=== PATIENT | female | born 1995 | race Caucasian/White ===

== ENCOUNTER 2020-06-16 11:47 | Emergency (ER) | payer OTHER, SELFPAY ==
[~2020-06-16] VITALS: Ht 171.4 cm; Wt 63.3 kg
[2020-06-16 13:55] LABS: HEMATOCRIT 42.2 % (36.0-47.0); HEMOGLOBIN 14.4 g/dl (12.0-15.5); MEAN CORPUSCULAR HEMOGLOBIN 29.6 pg (27.0-33.0); MEAN CORPUSCULAR HGB CONC 34.1 g/dl (32.0-36.5); MEAN CORPUSCULAR VOLUME 86.7 fl (80.0-96.0); PLATELET COUNT, AUTOMATED 298 10^3/uL (150-450); RED BLOOD COUNT 4.87 10^6/uL (4.00-5.40); WHITE BLOOD COUNT 7.5 10^3/uL (4.0-10.0)
--- NOTE | 2020-06-16 15:30 | REP ---
INDICATION: vaginal bleeding, 5 weeks. COMPARISON: None. TECHNIQUE: Real-time sonographic evaluation of gravid uterus performed. FINDINGS: Intrauterine gestational sac contains yolk sac and a pole. There appears to be a viable intrauterine fetus with crown-rump length of 3 mm corresponding to an estimated gestational age of 5 weeks 6 days, EDC 02/10/2021. heart rate 73 beats per minute. There is a subchorionic hemorrhage measuring 2.2 x 1.6 x 2.2 cm. In the left ovary a cystic area likely represents a corpus luteum 1.7 cm in diameter. IMPRESSION: Intrauterine gestation with estimated gestational age 5 weeks 6 days and heart rate 73 beats per minute. Subchorionic hemorrhage is visualized measuring 2.2 x 1.6 x 2.2 cm. <Electronically signed by Isai Barragan > 06/16/20 152
[2020-06-16] MEDS ORDERED: RHOGAM 300 MCG (1500 IU) INJ (J2790) IM ONE (15:45)
[2020-06-16 16:45] VITALS: BP 111/66
== END 2020-06-16 17:00 | disposition home or self-care (01) ==
LOC: M ED 11:47
DX: O20.0 Threatened abortion (principal); Z3A.01 Less than 8 weeks gestation of pregnancy
CPT/HCPCS: 36415; 76801; 81001; 84702; 85027; 86850; 86870; 86901; 96372; 99283; J2790

== ENCOUNTER → 2020-06-23 | Outpatient (CLI) | payer OTHER ==
--- NOTE | 2020-06-23 15:50 | REP ---
INDICATION: REPEAT FOR VIABILITY COMPARISON: 06/16/2020 TECHNIQUE: Transabdominal and transvaginal 1st trimester obstetrical ultrasound with color Doppler evaluation. FINDINGS: Single live early intrauterine is appreciated. Gestational sac with yolk sac and pole identified. [place]-rump length of 3 mm corresponds to 6 weeks 0 days gestational age with estimated date of delivery 02/16/2021. heart rate equals 116 beats per minute. Subchorionic hemorrhage is again identified adjacent to the gestational sac measuring 20 x 22 x 12 mm Left corpus luteal cyst noted. IMPRESSION: Single live early intrauterine at 6 weeks 0 days gestational age. Subchorionic hemorrhage again noted. Complete anatomical assessment should be performed and 19-20 weeks. <Electronically signed by Abram Dean > 06/23/20 [id number]
== END ==
LOC: M RAD 09:06
PROVIDERS: ATTEND Obstetrics & Gynecology
DX: Z36.9 Encounter for antenatal screening, unspecified (principal); Z3A.01 Less than 8 weeks gestation of pregnancy

== ENCOUNTER 2021-02-25 06:40 | Inpatient (IN) | payer OTHER ==
[2021-02-25] VITALS (20 sets, daily range): BP systolic 94–130; BP diastolic 50–87
[~2021-02-25] VITALS: Ht 172.7 cm; Wt 76.3 kg
[2021-02-25] MEDS ORDERED: PRENTAB9 PO (07:43)
[2021-02-25] MEDS ORDERED: VITA100T59 PO (07:43)
[2021-02-25] MEDS ORDERED: VITATAB74 PO (07:43)
[2021-02-25] MEDS ORDERED: BIOT1CAP2 PO (07:43)
[2021-02-25] MEDS ORDERED: LACTATED RINGER'S 1000 ML IV STA (07:47)
[2021-02-25] MEDS ORDERED: OXYTOCIN INJ 10 UNITS/ML VIAL (J2590) IM PRN (07:50)
[2021-02-25] MEDS ORDERED: LR 1,000 ML IV SCH (07:50)
[2021-02-25] MEDS ORDERED: TRANEXAMIC ACID INJection 1,000 MG in NS 100 ML IV PRN (07:50)
[2021-02-25] MEDS ORDERED: OXYTOCIN DRIP 30 UNITS in IV 1 EA IV PRN ×6 (07:50)
[2021-02-25] MEDS ORDERED: OXYTOCIN INJ 10 UNITS/ML VIAL (J2590) IV PRN (07:50)
[2021-02-25] MEDS ORDERED: CARBOPROST TROMETHAMINE 250 MCG/ML AMP IM PRN (07:50)
[2021-02-25] MEDS ORDERED: OXYTOCIN DRIP 30 UNITS in IV 1 EA IV SCH (07:50)
[2021-02-25] MEDS ORDERED: LIDOCAINE 1% MDV 20ML VIAL INFIL PRN (07:50)
[2021-02-25] MEDS ORDERED: miSOPROStol 50MCG 1/2 TABLET PO ONE ×2 (07:50→15:05)
[2021-02-25] MEDS ORDERED: METHYLERGONOVINE MALEATE 0.2 MG/ML VIAL (J2210) IM PRN (07:50)
--- NOTE | 2021-02-25 08:40 | HPEPDOC ---
Obstetrical History & Physical General Date of Admission Feb 25, 2021 at 06:40 History of Present Illness 26 yo @ 41W2D by 6wk us who is admitted for IOL at late term.. She denies any vaginal bleeding, abnormal vaginal discharge, leakage of fluids, urinary symptoms, or regular contractions. She denies any new headaches, visual abnormalities, chest pain, worsening dyspnea, facial swelling, or upper extremity swelling. At this time, she continues to report regular movement. Chief Complaint: Induction of labor Information Provided By: Patient Care Care: Good Care Dating Final EDC: Feb 16, 2021 Final EDC by: 1st trimester (US) 1st Trimester Date: Jun 23, 2020 Weeks + Days: 6 Estimated Date of Confinement: Feb 16, 2021 EGA at Admission: 41 (41+2) Antepartum Course Diagnos(e)s 1. Rh neg-had rhogam at 28 weeks 2. 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 Past Medical History Surgical History: [place] teeth Family History Significant Family History: No pertinent family hx Social History Marital Status: Family situation: Spouse/partner home * Smoker: non-smoker Alcohol: Denies Drugs: denies Abuse Violence Screening Have you been hit/kicked/slapp: No Have you been sexually assault: No Imunizations Tdap status: current Allergies Coded Allergies: No Known Allergies (Verified Allergy, Unknown, 06/16/20) Medications Scheduled Ascorbic Acid (Vitamin C) 100 Mg Tablet, 1 TAB PO DAILY Biotin (Biotin) 1 Mg Capsule, 1 CAP PO DAILY No.137/Iron/Folic Acd ( Vitamin Tablet) 1 Each Tablet, 1 TAB PO DAILY Miscellaneous Medications Mv-Mn/Iron/Folic Acid/Herb 190 (Vitamin D3 Complete Caplet) 1 Each Tablet, 1 TAB PO Physical Examination Physical Examination GENERAL: Alert and oriented times three. BREAST: . ABDOMEN: Gravid and non-tender to touch. FETUS: Is vertex (VTX) by sterile vaginal examination (SVE) HEART RATE: Regular rate and rhythm. LUNGS: normal work of breathing EXTREMITIES: No edema. SVE: /-3, double lumen coleman placed for cervical ripening Laboratory Data 24H LABS Laboratory Tests 2 02/25/21 06:42: Serology Scanned Report Hepatitis B Testing Urine Culture: No Growth Pertinent Laboratoy Data Blood Type: B- RBC Antibody Screen: Positive (s/p rhogam in1st trimester) HIV: Negative Hepatitis B: Negative Hepatitis C: Unknown Rapid Plasma Reagin: Nonreactive Rubella: Immune Varicella: Immune Chlamydia/Gonorrhea: Negative Group B Streptococcus: Negative Quad Screen Test: Declined Cystic Fibrosis: Declined Glucose Tolerance Test: 102 Anatomy Ultrasound Placenta Location: Posterior Normal Anatomy: Yes Vaginal Examination Dilation: 2cm Effacement: 50% Station: -3 Cervical Consistency: Medium Cervical Position: Posterior Presentation: Cephalic presentation Assessment Heart Rate (FHR): 140 Variability: Moderate Accelerations: Positive Decelerations: None Tocometer Contractions: Yes Frequency: irregular Assessment/Plan Assessment Assessment: 26 yo @ 41W2D by 6wk us who is admitted for IOL at late term. hemodynamically stable. Category I FHRT. GBS Neg APC: 1. Rh neg-had rhogam at 28 weeks 2. 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 - Consent signed and given to RN - CBC with type and screen. - Anesthesia consult in- she does not want epidural for now - Risks of augmentation with Cytotec, Coleman-Bulb, and Pitocin discussed with patient. -C-S as appropriate. Labor and Delivery Counseling We will deliver your baby through the vagina with possible assistance of forceps or vacuum device if needed for maternal or indications. Forceps and vacuum are devices that can assist with vaginal delivery when normal pushing efforts cannot achieve delivery on their own or when delivery is needed in an emergency for baby's well-being. Medications may be required to induce or augment (help) your labor in order to achieve a vaginal delivery. An episiotomy may be required to help your baby to delivery vaginally. You may also require repair of any lacerations or tears of your vagina or vulva that are caused by delivery. In some cases, emergencies can occur that require an emergency section delivery so quickly that there may not be enough time to stop and complete co nsent forms for section. Understand that if this occurs, your providers will discuss the need for a section with you before they proceed with surgery. section is the delivery of your baby through an incision in your abdomen. In some situations, section may be safer to mom and baby than continuing labor and is only performed when clinically indicated. Risks of vaginal delivery include but are not limited to: Bleeding, infection, injury to the vagina, pelvic structures, injury to baby, damage to the uterus, reactions to anesthesia, uterine rupture, risk of hysterectomy for life threatening bleeding, or . Medications used to induce or augment labor may increase your risk for infection, uterine tachysystole, uterine rupture, heart rate abnormalities, need for emergency delivery or possible hysterectomy, and hemorrhage. Additional risks for use of forceps and vacuum include: increased risk of perineal and vaginal lacerations, risk of urinary or bowel incontinence, increased risk of injury to baby with bruising, scratches, hematomas on the head, or intracranial bleeding. TESFAYE MOORE MD Feb 25, 2021 08:16
[2021-02-25 09:07] LABS: HEMATOCRIT 37.5 % (36.0-47.0); HEMOGLOBIN 13.2 g/dl (12.0-15.5); MEAN CORPUSCULAR HEMOGLOBIN 30.9 pg (27.0-33.0); MEAN CORPUSCULAR HGB CONC 35.2 g/dl (32.0-36.5); MEAN CORPUSCULAR VOLUME 87.8 fl (80.0-96.0); PLATELET COUNT, AUTOMATED 276 10^3/uL (150-450); RED BLOOD COUNT 4.27 10^6/uL (4.00-5.40); WHITE BLOOD COUNT 17.1 10^3/uL (4.0-10.0)
--- NOTE | 2021-02-25 21:25 | IPNPDOC ---
Obstetrical Progress Note Date of Service Feb 25, 2021 Subjective To room for assessment. patient is comfortable in bed. FHT: 120, Mod jade,+accels, -decel--cat I tracing TOCO: Irregular SVE: 5/75/-1, DLFB removed arounf 8pm. pit started at 9pm. A/P Latent labor. cat I tracing. will continue to go up on pitocin then reassess in 4 hrs for Arom Anticipate . Objective Vital Signs Date Time Temp Pulse Resp B/P (MAP) Pulse Ox O2 Delivery O2 Flow Rate FiO2 02/25/21 21:10 63 125/59 (81) 02/25/21 19:44 97.9 02/25/21 18:17 16 02/25/21 07:14 98 TESFAYE MOORE MD Feb 25, 2021 21:25
--- NOTE | 2021-02-25 22:44 | IPNPDOC ---
Obstetrical Progress Note Date of Service Feb 25, 2021 Subjective To room for assessment. patient still not feeling contractions FHT: 120, MOD CLAY ACCELS, NO DECELS---CAT I tracing TOCO: IRREGULAR, PIT @ 6 SVE: 5/75/-1, AROM CLEAR A/P LATENT LABOR. CAT I TRACING. ANTICIPATE Objective Vital Signs Date Time Temp Pulse Resp B/P (MAP) Pulse Ox O2 Delivery O2 Flow Rate FiO2 02/25/21 22:09 98.0 59 14 107/58 (74) 02/25/21 07:14 98 TESFAYE MOORE MD Feb 25, 2021 22:44
[2021-02-26] VITALS (33 sets, daily range): BP systolic 100–250; BP diastolic 55–134
[2021-02-26] MEDS ORDERED: FENTANYL 2MCG/ML ROPIVACAINE 0.2% IN 0.9% NACL 100ML IVBAG As Ordered ONE (04:02)
[2021-02-26] MEDS ORDERED: LACTATED RINGER'S 1000 ML IV PRN (04:45)
[2021-02-26] MEDS ORDERED: ePHEDrine SULFATE 25 MG/5 ML(5MG/ML) SYRINGE IV PRN (04:45)
[2021-02-26] MEDS ORDERED: FENTANYL/ROPIVACAINE/NACL BAG 100 ML EPIDURAL SCH (04:45)
[2021-02-26] MEDS ORDERED: NALOXONE INJ 0.4MG/1ML VIAL (J2310 PER 1MG) IV PRN (04:45)
[2021-02-26] MEDS ORDERED: EPIDURAL/PCA KEYS XX PRN (04:45)
[2021-02-26] MEDS ORDERED: REFRIGERATOR IV KEYS XX PRN (04:45)
[2021-02-26] MEDS ORDERED: EPIDURAL COMMENT XX SCH (04:45)
[2021-02-26] MEDS ORDERED: diphenhydrAMINE 50MG/ML VIAL (J1200) IV PRN (04:45)
[2021-02-26] MEDS ORDERED: ONDANSETRON 4MG/2ML VIAL IV PRN (04:45)
--- NOTE | 2021-02-26 08:09 | IPNPDOC ---
Obstetrical Progress Note Date of Service Feb 26, 2021 Subjective Report received, assumed care at 0730. Patient currently C/C, just started to actively push. Comfortable with DUNCAN, but still feeling pressure to push. Objective Vital Signs Date Time Temp Pulse Resp B/P (MAP) Pulse Ox O2 Delivery O2 Flow Rate FiO2 02/26/21 06:54 73 123/77 (92) 02/26/21 05:37 98.2 02/25/21 22:09 14 02/25/21 07:14 98 Assessment Heart Rate (FHR): 120 Variability: Moderate Accelerations: Present Decelerations: Variable Heart Rate Tracing: Category II Tocometer Frequency: every 2-5 min. Assessment and Plan Additional Comments A/P 26yo at 41+3 wks. Was IOL for pending postdates. B Neg, RI/, GBS negative VSS FHR cat 2 with occ variables. Actively pushing with about 1cm caput at this time. +2 for skull Ruptured with clear fluid Pitocin currently on 14mu/min. Continually actively pushing, anticipate . Consult physician service as needed. ISAÍAS BERNARDO CNM Feb 26, 2021 08:09
[2021-02-26] MEDS: PRENATAL VITAMINS CHEWABLE TABLET PO SCH (09:00)
[2021-02-26 10:25] LABS: CORD GAS ABE V -3.7; CORD GAS HCO3 V 21.9 MEQ/L; CORD GAS O2 SAT V 62.2 %; CORD GAS PCO2 V 41.6 mmHg; CORD GAS PH V 7.339 UNITS; CORD GAS SBC V 20.5 MEQ/L; CORD GAS TCO2 V 23.2 MEQ/L
[2021-02-26] MEDS ORDERED: DOCUSATE SODIUM 100MG CAPSULE PO PRN (10:35)
[2021-02-26] MEDS ORDERED: ACETAMINOPHEN TAB 650MG DOSE (2X325MG) PO PRN (10:35)
[2021-02-26] MEDS ORDERED: IBUPROFEN 600MG TAB PO PRN (10:35)
[2021-02-26] MEDS ORDERED: IBUPROFEN 800 MG TAB PO PRN (10:35)
[2021-02-26] MEDS ORDERED: DIBUCAINE 1% OINTMENT 30GM TOP PRN (10:35)
[2021-02-26] MEDS ORDERED: METHYLERGONOVINE MALEATE 0.2 MG TAB PO PRN (10:35)
[2021-02-26] MEDS ORDERED: RHOGAM 300 MCG (1500 IU) INJ (J2790) IM SCH (10:35)
[2021-02-26] MEDS ORDERED: OXYTOCIN DRIP 30 UNITS in IV 1 EA IV SCH (10:35)
--- NOTE | 2021-02-26 11:15 | DNPDOC ---
[facility] Delivery Note Delivery Note Date of Delivery: 26 Feb 2021 @ 1005 hours Pre-Procedure Diagnosis: 1. 26 year old at 41+3 weeks gestation 2. Rh Negative 3. 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 Induction for pending Postdates Post-Procedure Diagnosis: 1. Normal spontaneous vaginal delivery, after 40 weeks gestation 2. Second degree laceration Procedure: Spontaneous vaginal delivery Delivery Provider: MAJ Kimberley Thompson CNM Anesthesia: Epidural Estimated Blood Loss: 150 ml Findings: Delivered viable infant Female weighing 3530gm (7#15oz), Score 8/9. Complications: None Delivery Summary: Patient is a 26 year old 2 now para 1 who was admitted to labor and delivery for IOL for late term gestation. She progressed to C/C/+3 on Pitocin titration induction. Noted variable decelerations with contractions throughout pushing. Baseline reassuring between. Offered episiotomy to relieve tissue band, however patient delivered OA on next contraction, head restituting to LOT. Right anterior shoulder, posterior shoulder, and corpus delivered easily with maternal pushing efforts. to maternal abdomen for drying, stimulation and assessment by nursing staff. Cord clamped x2 and cut by FOB after about 60sec for delayed clamping. Segment of cord obtained for gases. Cord blood obtained for typing due to maternal blood type. Placenta delivered with gentle cord traction, in [place] mechanism, appears complete and intact with 3VC. [place] Cord insertion with heart shaped placenta. Fundus massaged to firm with minimal bleeding. Inspection revealed second degree laceration. This was repaired in the usual fashion using 3-0 vicryl with good approximation and hemostasis under exiting epidural anesthesia. Patient tolerated well. Sponge, needle, instrument count correct following delivery. Vaginal sweep confirmed nothing foreign remaining in vagina. Patient and infant stable and bonding in skin to skin when I left. Desires to breast feed and use TAM/NFP for control. I delivered the infant, completed the repair, and completed the documentation personally. -CARLOS Solis ADINA M. CNM Feb 26, 2021 11:14
[2021-02-26] MEDS: ACETAMINOPHEN 500 MG TAB PO PRN (15:15)
--- NOTE | 2021-02-27 05:33 | IPNPDOC ---
Progress Note Date of Service: Feb 27, 2021 Day#: 1 Progress Note SUBJECT: 26 yo admitted for IOL at late term status post uncomplicated spontaneous vaginal delivery at 41+3 weeks' at approximately 1005 hours on [id number] of a female 7 pounds 15 ounces (3530 grams) doing well day # 1. She has been ambulating, voiding spontaneously without issue and tolerating regular diet. Breast feeding without issue. Reports lochia is decreasing. Patient is ambulating well. 1. 26 year old at 41+3 weeks gestation 2. Rh Negative 3. 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 Induction for pending Postdates OBJECTIVE: VITAL SIGNS: Within normal limits, afebrile. Alert and oriented times three. Breath sounds clear to auscultation. Heart rate: Regular rate and rhythm, no murmurs, rubs or gallops. Abdomen: Fundus firm at U-2. Soft, NTTP. Negative calf tenderness bilaterally ASSESSMENT: As above doing well on day 1. Vitals within normal limits, afebrile, hemodynamically stable with no evidence of infection. PLAN: 1. Discharge to home tomorrow likely 2. Tylenol and Motrin for pain. 3. Encourage breast feeding and ambulation. 4. NFP for contraception 5. Routine PP visit in 6 weeks in clinic. VS, I&O, 24H, Fishbone Vital Signs/I&O Vital Signs Date Time Temp Pulse Resp B/P (MAP) Pulse Ox O2 Delivery O2 Flow Rate FiO2 02/26/21 18:00 99.0 63 17 102/60 (74) 98 Room Air I&O- Last 24 Hours up to 6 AM 02/27/21 06:00 Intake Total 2832 ml Output Total 1100 ml Balance 1732 ml Laboratory Data 24H LABS Laboratory Tests 2 02/26/21 10:11: Cord Venous Blood pH 7.339, Cord Venous Blood PCO2 41.6, Cord Venous Blood PO2 25.0, Cord Venous Blood HCO3 21.9, Cord Venous Blood Total CO2 23.2, Cord Venous Base Excess (Actual) -3.7, Cord Venous Base Excess (Standard) 20.5, Cord Venous Blood Oxygen Saturation 62.2 ALEAH YE DO Feb 27, 2021 00:21
[2021-02-27 06:00] VITALS: BP 100/56
[2021-02-27] MEDS ORDERED: INFLUENZA QUADRIVALENT PF VACCINE 0.5ML SYRINGE IM ONE (09:00)
[2021-02-27] MEDS: PRENATAL VITAMINS CHEWABLE TABLET PO SCH (09:41)
[2021-02-27] MEDS: ACETAMINOPHEN 500 MG TAB PO PRN ×2 (14:31→23:12)
[2021-02-27 18:00] VITALS: BP 103/57
[2021-02-28 05:47] VITALS: BP 109/59
[2021-02-28] MEDS ORDERED: DOCU100C16 PO (06:26)
[2021-02-28] MEDS ORDERED: IBUP-1022 PO (06:26)
[2021-02-28] MEDS: ACETAMINOPHEN 500 MG TAB PO PRN (09:37)
[2021-02-28] MEDS: PRENATAL VITAMINS CHEWABLE TABLET PO SCH (09:37)
--- NOTE | 2021-02-28 11:40 | DSES ---
DISCHARGE SUMMARY DATE OF ADMISSION: 02/25/2021 DATE OF DISCHARGE: 02/28/2021 BRIEF HISTORY: 26-year-old 2, now para 1, admitted for induction of labor at 41 and 2 weeks of gestation. Had spontaneous vaginal delivery of female 7 pounds 15 ounces, 3530 gm, Apgars 8 and 9 at 1 and 5 minutes respectively. Had second degree tear that was repaired. On her discharge day we discussed phlebitis, cystitis, mastitis, endometritis and cellulitis, diet, exercise, pain management, perineal, breast and wound care. Rest of the examination unremarkable. Normocephalic, atraumatic. Neck full range of motion. Pupils equal and reactive to light. Distal pulses symmetric. No evidence of DVT, PE, or superficial phlebitis. Chest is clear bilateral to bases. No wheezes or rhonchi. No CVA tenderness. Abdomen soft, four quadrant bowel sounds are noted. Perineum is healing. No urgency or frequency. No nausea, vomiting, diarrhea or constipation. Blood pressure on discharge is 109/59, respirations 18, pulse 59, temperature 97.5. Admitting hemoglobin 13.2, hematocrit 37.5, platelets 276. 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 All questions were answered. 20 minute discussion. Await clearance by the gear and spline grinder for discharge. cc: [facility] Edited: raghu 03/01/2021 1100 MTDD
== END 2021-02-28 12:43 | disposition home or self-care (01) | DRG 807 ==
LOC: M LDI 06:40 → M OBS 02-26 12:57
PROVIDERS: ADMIT Obstetrics & Gynecology; ATTEND Advanced Practice Midwife
PROC: 3E0P7GC Introduction of Other Therapeutic Substance into Female Reproductive, Via Natural or Artificial Opening (ICD-10-PCS; 2021-02-25)
PROC: 10907ZC Drainage of Amniotic Fluid, Therapeutic from Products of Conception, Via Natural or Artificial Opening (ICD-10-PCS; 2021-02-25)
PROC: 10E0XZZ Delivery of Products of Conception, External Approach (ICD-10-PCS; principal; 2021-02-26)
PROC: 0KQM0ZZ Repair Perineum Muscle, Open Approach (ICD-10-PCS; 2021-02-26)
DX: O48.0 Post-term pregnancy (principal); Z37.0 Single live birth; Z3A.41 41 weeks gestation of pregnancy; O70.1 Second degree perineal laceration during delivery